=== PATIENT | female | born 1990 | race Caucasian/White ===

== ENCOUNTER 2022-02-01 03:10 | Emergency (ER) | payer MEDICAID ==
[~2022-02-01] VITALS: Ht 167.6 cm; Wt 113.4 kg
[2022-02-01] MEDS ORDERED: ACETAMINOPHEN 325 MG TABLET PO ONE (03:30)
--- NOTE | 2022-02-01 03:30 | NUR ---
TO ER BED 7. BIBS C/O "PAINFUL VESSICLE/BLISTER LIKE RASHES ON VAGINA" X FEW MONTHS. PT CHANGED INTO GOWN. AWAITING MD ARCHULETA
[2022-02-01] MEDS ORDERED: ACETAMINOPHEN 325 MG TABLET ONE (03:33)
--- NOTE | 2022-02-01 03:41 | NUR ---
AT BEDSIDE, CHAPERONED FOR DR BAIRES DURING EXAMINATION
[2022-02-01] MEDS ORDERED: KETOROLAC TROMETHAMINE 15 MG/ML VIAL ONE (03:50)
[2022-02-01] MEDS ORDERED: CEFTRIAXONE 1 G VIAL ONE (03:50)
[2022-02-01] MEDS ORDERED: DOXYCYCLINE HYCLATE (100 MG) 100 MG TABLET ONE (03:51)
[2022-02-01] MEDS ORDERED: DOXYCYCLINE HYCLATE (100 MG) 100 MG TABLET PO ONE (04:00)
[2022-02-01] MEDS ORDERED: CEFTRIAXONE 1 G VIAL IM ONE (04:00)
[2022-02-01] MEDS ORDERED: KETOROLAC TROMETHAMINE INJ 30 MG/ML VIAL IM ONE (04:00)
--- NOTE | 2022-02-01 04:17 | NUR ---
URINE COLLECTED AND SENT TO LAB
[2022-02-01 04:24] LABS: BILIRUBIN,URINE SMALL (NEGATIVE); COLOR,URINE YELLOW (YELLOW); LEUKOCYTE ESTERASE ,URINE MODERATE (NEGATIVE); NITRITE, URINE NEGATIVE (NEGATIVE); PH,URINE 5.5 (5.0-8.0); PROTEIN,URINE NEGATIVE (NEGATIVE); UGLUCOSE NEGATIVE (NEGATIVE); UROBILINOGEN,URINE 0.2 EU/dL (0.2)
[2022-02-01] MEDS ORDERED: ACYCLOVIR 200 MG CAPSULE PO ONE (04:30)
[2022-02-01] MEDS ORDERED: ACYCLOVIR 200 MG CAPSULE ONE (04:32)
[2022-02-01] MEDS ORDERED: DOXY100T2 PO (04:48)
[2022-02-01] MEDS ORDERED: ACYC400T19 PO (04:48)
[2022-02-01] MEDS ORDERED: IBUP-1953 PO (04:48)
[2022-02-01] MEDS ORDERED: ACYC5CRE2 TP (04:48)
[2022-02-01 05:00] VITALS: BP 140/98
--- NOTE | 2022-02-01 05:00 | NUR ---
Patient discharged to home in stable condition. Written and verbal after care instructions given. Patient verbalizes understanding of instruction.
[2022-02-01 06:30] LABS: BACTERIA,URINE Moderate /HPF (None Seen); SQUAMOUS EPITHELIAL CELL,UR Few /HPF (None Seen); WBC,URINE 21-50 /HPF (0-3)
[2022-02-01 06:31] LABS: CALCIUM OXALATE CRYSTALS,UR Few /HPF (None Seen)
== END 2022-02-01 05:01 | disposition home or self-care (01) ==
LOC: ER 03:10
DX: A60.04 Herpesviral vulvovaginitis (principal); A74.9 Chlamydial infection, unspecified; A54.9 Gonococcal infection, unspecified; F17.200 Nicotine dependence, unspecified, uncomplicated; Z87.42 Personal history of other diseases of the female genital tract; Z79.1 Long term (current) use of non-steroidal anti-inflammatories (NSAID); Z79.899 Other long term (current) drug therapy
CPT/HCPCS: 81001; 84703; 87077; 87086; 87186; 87491; 87591; 96372 ×2; 99284; 99406; J0696; J1885